=== PATIENT | male | born 1995 | race Caucasian/White ===

== ENCOUNTER 2017-07-07 06:41 | Emergency (ER) | payer SELFPAY ==
[2017-07-07 07:04] VITALS: TEMP 97.7
[2017-07-07] MEDS ORDERED: hydrOXYzine HCl 25 MG TAB PO ONE (07:14)
[2017-07-07] MEDS ORDERED: predniSONE 20 MG TAB PO ONE (07:14)
--- NOTE | 2017-07-07 07:17 | ED.PDOC ---
History of Present Illness - General Chief Complaint: Skin/Abrasion/Tear Stated Complaint: Rash Time Seen by Provider: 07/07/17 07:14 Source: patient Exam Limitations: no limitations - History of Present Illness Initial Comments: pt presents after 3 days of pruritic rash to wrists followed by some general periorbital swelling and runny nose. probable exposure to poison alejandra 3 days ago. has washed with soap. no sob or resp distress. Severity: moderate Improving Factors: nothing Associated Symptoms: denies symptoms Allergies/Adverse Reactions: Allergies Penicillins Allergy (Verified 07/07/17 07:05) Unknown Home Medications: Ambulatory Orders Hydroxyzine HCl 25 mg PO Q6H PRN #30 tab 07/07/17 predniSONE [Prednisone] 20 mg PO DAILY #5 tab 07/07/17 Review of Systems - Review of Systems Constitutional: States: no symptoms reported EENTM: States: see HPI Respiratory: States: no symptoms reported Cardiology: States: no symptoms reported Gastrointestinal/Abdominal: States: no symptoms reported Genitourinary: States: no symptoms reported Musculoskeletal: States: no symptoms reported Skin: States: see HPI Neurological: States: no symptoms reported Endocrine: States: no symptoms reported All other Systems: No Change from Baseline Past Medical History (General) - Patient Medical History Hx Seizures: No Hx Stroke: No Hx Dementia: No Hx Asthma: No Hx of COPD: No Hx Cardiac Disorders: No Hx Congestive Heart Failure: No Hx Pacemaker: No Hx Hypertension: No Hx Thyroid Disease: No Hx Diabetes: No Hx Gastroesophageal Reflux: No Hx Renal Disease: No Hx Cancer: No Hx of HIV: No Hx Hepatitis C: No Hx MRSA: No Surgical History: tonsillectomy - Vaccination History Hx Tetanus, Diphtheria Vaccination: Yes Hx Influenza Vaccination: No Hx Pneumococcal Vaccination: No - Social History Hx Tobacco Use: No Hx Chewing Tobacco Use: No Hx Alcohol Use: Yes Hx Substance Use: Yes Hx Substance Use Treatment: No Hx Depression: Yes Hx Physical Abuse: No Hx Emotional Abuse: No Hx Suspected Abuse: No Family Medical History - Family History Mother Family History: No Known Living Status: Still Living Physical Exam - Physical Exam General Appearance: Alert, Comfortable, No apparent distress Eye Exam: bilateral normal Ears, Nose, Throat: hearing grossly normal, normal ENT inspection, normal pharynx Neck: full range of motion, supple Respiratory: lungs clear, normal breath sounds, no respiratory distress, no accessory muscle use Cardiovascular/Chest: normal peripheral pulses, regular rate, rhythm, no edema Peripheral Pulses: radial,right: 2+, radial,left: 2+, dorsalis pedis,right: 2+, dorsalis pedis,left: 2+ Gastrointestinal/Abdominal: non tender, soft Rectal Exam: deferred Back Exam: normal inspection, no CVA tenderness, no vertebral tenderness Extremity: normal range of motion, non-tender, normal inspection, no pedal edema , normal capillary refill Neurologic: alert, normal mood/affect, oriented x 3 Skin Exam: normal color Comments: Vital Signs - 24 hr 07/07/17 07:01 Temperature 97.7 F Pulse Rate [ 68 Left Radial] Respiratory 20 Rate Blood Pressure 121/68 [Left Arm] O2 Sat by Pulse 98 Oximetry Progress - Progress Progress: 07/07/17 07:17 pt here with reaction likely from poison alejandra/oak. no anaphylaxis. given prednisone and hydroxyzine here and scripts written . er warnings for any worsening. no evidence of infection at this time. - Results/Orders Results/Orders: Vital Signs - 24 hr 07/07/17 07:01 Temperature 97.7 F Pulse Rate [ 68 Left Radial] Respiratory 20 Rate Blood Pressure 121/68 [Left Arm] O2 Sat by Pulse 98 Oximetry Departure - Departure Clinical Impression: Contact dermatitis due to poison rom Disposition: Discharge to Home or Self Care Condition: Fair Departure Forms: ED Discharge - Pt. Copy, ED Discharge - Work Release, Patient Portal Self Enrollment Instructions: DI for Contact Dermatitis Diet: regular diet Activity: increase activity as tolerated Prescriptions: Hydroxyzine HCl 25 mg PO Q6H PRN #30 tab PRN Reason: For Itching predniSONE [Prednisone] 20 mg PO DAILY #5 tab Home Medications: Ambulatory Orders Hydroxyzine HCl 25 mg PO Q6H PRN #30 tab 07/07/17 predniSONE [Prednisone] 20 mg PO DAILY #5 tab 07/07/17 Additional Instructions: pt here with reaction likely from poison alejandra/oak. no anaphylaxis. given prednisone and hydroxyzine here and scripts written . er warnings for any worsening. no evidence of infection at this time.
[2017-07-07 07:30] VITALS: BP 121/76; O2SAT 97
== END 2017-07-07 07:31 | disposition home or self-care (01) ==
LOC: ER 06:41
DX: L23.7 Allergic contact dermatitis due to plants, except food (principal); Z88.0 Allergy status to penicillin; Z79.899 Other long term (current) drug therapy

== ENCOUNTER 2017-07-14 17:32 | Emergency (ER) | payer SELFPAY ==
[2017-07-14 17:40] VITALS: BP 116/74; TEMP 98.8; O2SAT 98
[2017-07-14] MEDS ORDERED: DEXAMETHASONE INJ 10 MG/ML VIAL IM ONE (17:51)
--- NOTE | 2017-07-14 18:00 | ED.PDOC ---
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 ALSO HAS SIMILAR RASH HE WAS SEEN HERE ON 07 OF JULY RECEIVED TREATMENT WITH PREDNISONE 20 MG POQ DAY AND ATARAX HE CONTUNOUS TO ITCH AFTER COMPLETING THE COURSE OF PRESCRIBED STEROIDS TODAY HE HAS RIGHT PERIORBITAL SOFT TISSUE EDEMA AND PATCHY ERYTHEMATOUS RASH IN THE UPPER TRUNK SOME LENIER STREAKS OF REDNESS IN THE UPPER EXTREMITY HE HAS NO ORAL LESIONS NO RESPIRATORY SYMPTOMS Timing/Duration: week Location: torso, hands, extremities Improving Factors: nothing Worsening Factors: nothing Associated Symptoms: denies symptoms, itching, rash Allergies/Adverse Reactions: Allergies Penicillins Allergy (Verified 07/14/17 17:42) Unknown Home Medications: Ambulatory Orders Prednisone See Taper PO DAILY 5 Days #20 tab 07/14/17 Review of Systems - Review of Systems Constitutional: States: no symptoms reported EENTM: States: no symptoms reported Respiratory: States: no symptoms reported Cardiology: States: no symptoms reported Gastrointestinal/Abdominal: States: no symptoms reported Genitourinary: States: no symptoms reported Musculoskeletal: States: no symptoms reported Skin: States: no symptoms reported, see HPI Neurological: States: no symptoms reported Endocrine: States: no symptoms reported Hematologic/Lymphatic: States: no symptoms reported Past Medical History (General) - Patient Medical History Hx Seizures: No Hx Stroke: No Hx Dementia: No Hx Asthma: No Hx of COPD: No Hx Cardiac Disorders: No Hx Congestive Heart Failure: No Hx Pacemaker: No Hx Hypertension: No Hx Thyroid Disease: No Hx Diabetes: No Hx Gastroesophageal Reflux: No Hx Renal Disease: No Hx Cancer: No Hx of HIV: No Hx Hepatitis C: No Hx MRSA: No - Vaccination History Hx Tetanus, Diphtheria Vaccination: Yes Hx Influenza Vaccination: No Hx Pneumococcal Vaccination: No - Social History Hx Tobacco Use: No Hx Chewing Tobacco Use: No Hx Alcohol Use: Yes Hx Substance Use: Yes Hx Substance Use Treatment: No Hx Depression: Yes Hx Physical Abuse: No Hx Emotional Abuse: No Hx Suspected Abuse: No Family Medical History - Family History Mother Family History: No Known Living Status: Still Living Physical Exam - Physical Exam General Appearance: Anxious, No apparent distress, Obese, Well Developed, Well Groomed, Well Hydrated, Well Nourished Eyes, Ears, Nose, Throat Exam: PERRL/EOMI, normal ENT inspection, TMs normal, pharynx normal Neck: non-tender, full range of motion, supple Cardiovascular/Chest: normal peripheral pulses, regular rate, rhythm, no edema, no gallop, no JVD Respiratory: lungs clear, normal breath sounds, no respiratory distress Gastrointestinal/Abdominal: normal bowel sounds, non tender, soft, no organomegaly, no pulsatile mass Extremity: normal range of motion 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 Copy, Patient Portal Self Enrollment Prescriptions: Prednisone See Taper PO DAILY 5 Days #20 tab Home Medications: Ambulatory Orders Prednisone See Taper PO DAILY 5 Days #20 tab 07/14/17
== END 2017-07-14 18:13 | disposition home or self-care (01) ==
LOC: ER 17:32
DX: L25.9 Unspecified contact dermatitis, unspecified cause (principal); Z88.0 Allergy status to penicillin

== ENCOUNTER 2017-08-28 06:27 | Emergency (ER) | payer SELFPAY ==
[2017-08-28] MEDS ORDERED: DEXAMETHASONE INJ 10 MG/ML VIAL IM ONE (06:47)
[2017-08-28 06:50] VITALS: O2SAT 96
--- NOTE | 2017-08-28 06:51 | ED.PDOC ---
History of Present Illness - General Chief Complaint: General Stated Complaint: rash all over x 1 week Time Seen by Provider: 08/28/17 06:47 Source: patient Exam Limitations: no limitations Additional Information: RASH, ONSET ONE WEEK AGO. HAS BEEN TREATING IT WITH OVER THE COUNTER MEDS BUT SEEMS THAT IT IS GETTING WORSE. HE WORKS IN THE [employer] AND HE HAS HAD RHUSS DERMATITIS BEFORE. - History of Present Illness Timing/Duration: 1 week Severity: mild Improving Factors: nothing Worsening Factors: nothing Associated Symptoms: other - ITCHING Allergies/Adverse Reactions: Allergies Penicillins Allergy (Verified 07/14/17 17:42) Unknown Home Medications: Ambulatory Orders Prednisone See Taper PO DAILY 5 Days #20 tab 07/14/17 Prednisone 10 mg PO DAILY #25 lizbeth 08/28/17 Triamcinolone 0.1% Oint [Kenalog 0.1% Ointment] 30 gm TOP BID 5 Days tube 08/28 hydrOXYzine HCl [Atarax] 25 mg PO Q8HRS #15 tab 08/28/17 Review of Systems - Review of Systems Constitutional: States: other - RASH AND ITCHING EENTM: States: no symptoms reported Respiratory: States: no symptoms reported Cardiology: States: no symptoms reported Gastrointestinal/Abdominal: States: no symptoms reported Genitourinary: States: no symptoms reported Musculoskeletal: States: no symptoms reported Skin: States: rash Neurological: States: no symptoms reported Endocrine: States: no symptoms reported Hematologic/Lymphatic: States: no symptoms reported All other Systems: Reviewed and Negative Past Medical History (General) - Patient Medical History Hx Seizures: No Hx Stroke: No Hx Dementia: No Hx Asthma: No Hx of COPD: No Hx Cardiac Disorders: No Hx Congestive Heart Failure: No Hx Pacemaker: No Hx Hypertension: No Hx Thyroid Disease: No Hx Diabetes: No Hx Gastroesophageal Reflux: No Hx Renal Disease: No Hx Cancer: No Hx of HIV: No Hx Hepatitis C: No Hx MRSA: No - Vaccination History Hx Tetanus, Diphtheria Vaccination: Yes Hx Influenza Vaccination: No Hx Pneumococcal Vaccination: No - Social History Hx Tobacco Use: No Hx Chewing Tobacco Use: No Hx Alcohol Use: Yes Hx Substance Use: Yes Hx Substance Use Treatment: No Hx Depression: Yes Hx Physical Abuse: No Hx Emotional Abuse: No Hx Suspected Abuse: No Family Medical History - Family History Mother Family History: No Known Living Status: Still Living Physical Exam - Physical Exam General Appearance: Alert, No apparent distress, Well Developed, Well Groomed, Well Nourished Eye Exam: bilateral normal Ears, Nose, Throat: hearing grossly normal, normal ENT inspection, normal pharynx Neck: non-tender, full range of motion, supple, normal inspection Respiratory: chest non-tender, lungs clear, normal breath sounds, no respiratory distress, no accessory muscle use Cardiovascular/Chest: normal peripheral pulses, regular rate, rhythm, no edema, no gallop, no JVD, no murmur Peripheral Pulses: radial,right: 2+, radial,left: 2+ Gastrointestinal/Abdominal: normal bowel sounds, non tender, soft Rectal Exam: deferred Back Exam: normal inspection Extremity: normal range of motion, non-tender, normal inspection Neurologic: no motor/sensory deficits, alert Skin Exam: rash - ON THE RIGHT ARM THERE IS A PAPULAR RASH ON THE ANTERIOR SURFACE AND ELBOW AREA, LINEAR DISTRIBUTION SUGGESTIVE OF RHUSS DERMATITIS. ON THE LEFT WRIST ANTERIORLY THERE IS ANOTHER RASH WITH SCRATH JOSÉ. Departure - Departure Clinical Impression: Rhus dermatitis Time of Disposition: 06:54 Disposition: Discharge to Home or Self Care Condition: Good Departure Forms: ED Discharge - Pt. Copy, Patient Portal Self Enrollment Diet: resume usual diet Activity: increase activity as tolerated Prescriptions: hydrOXYzine HCl [Atarax] 25 mg PO Q8HRS #15 tab Prednisone 10 mg PO DAILY #25 lizbeth Triamcinolone 0.1% Oint [Kenalog 0.1% Ointment] 30 gm TOP BID 5 Days tube Home Medications: Ambulatory Orders Prednisone See Taper PO DAILY 5 Days #20 tab 07/14/17 Prednisone 10 mg PO DAILY #25 lizbeth 08/28/17 Triamcinolone 0.1% Oint [Kenalog 0.1% Ointment] 30 gm TOP BID 5 Days tube 08/28 hydrOXYzine HCl [Atarax] 25 mg PO Q8HRS #15 tab 08/28/17
[2017-08-28 07:09] VITALS: BP 105/67; TEMP 97.6
== END 2017-08-28 07:09 | disposition home or self-care (01) ==
LOC: ER 06:27
DX: L23.7 Allergic contact dermatitis due to plants, except food (principal); Z88.0 Allergy status to penicillin

== ENCOUNTER 2017-09-19 19:17 | Emergency (ER) | payer SELFPAY | END 2017-09-19 22:07 | disposition home or self-care (01) | LOC: ER 19:17 | DX: Z53.21 Procedure and treatment not carried out due to patient leaving prior to being seen by health care provider (principal) ==

== ENCOUNTER 2017-09-20 07:10 | Emergency (ER) | payer SELFPAY ==
--- NOTE | 2017-09-20 07:47 | ED.PDOC ---
History of Present Illness - General Chief Complaint: Headache Stated Complaint: headache Time Seen by Provider: 09/20/17 07:32 Source: patient Exam Limitations: no limitations - History of Present Illness Initial Comments: magnolia Marcum 21 y/o male stated that he had on and off throbbing headache for the last one week along left periorbital area and cheeks with light headedness getting up from bed.Has also mild photophobia no blurry vision,no fever,no nausea or vomiting or abdominal pain.Denies head trauma.No history of migraine headache.Took over the counter medication ibuprofen /tylenol did not help Timing/Duration: 1 week Quality: moderate, throbbing, other - intermittent Recent Head Trauma: no recent headache/trauma Improving Factors: nothing Worsening Factors: nothing Associated Symptoms: denies symptoms Allergies/Adverse Reactions: Allergies Penicillins Allergy (Verified 09/20/17 07:28) Unknown Home Medications: Ambulatory Orders Sumatriptan Succinate [Imitrex] 25 mg PO PRN PRN #10 tab 09/20/17 Review of Systems - Review of Systems Constitutional: States: no symptoms reported EENTM: States: no symptoms reported Respiratory: States: no symptoms reported Cardiology: States: no symptoms reported Gastrointestinal/Abdominal: States: no symptoms reported Neurological: States: see HPI, headache All other Systems: Reviewed and Negative, No Change from Baseline Past Medical History (General) - Patient Medical History Hx Seizures: No Hx Stroke: No Hx Dementia: No Hx Asthma: No Hx of COPD: No Hx Cardiac Disorders: No Hx Congestive Heart Failure: No Hx Pacemaker: No Hx Hypertension: No Hx Thyroid Disease: No Hx Diabetes: No Hx Gastroesophageal Reflux: No Hx Renal Disease: No Hx Cancer: No Hx of HIV: No Hx Hepatitis C: No Hx MRSA: No Surgical History: tonsillectomy - Vaccination History Hx Tetanus, Diphtheria Vaccination: Yes Hx Influenza Vaccination: No Hx Pneumococcal Vaccination: No - Social History Hx Tobacco Use: Yes Hx Chewing Tobacco Use: No Hx Alcohol Use: Yes Hx Substance Use: Yes Hx Substance Use Treatment: No Hx Depression: Yes Hx Physical Abuse: No Hx Emotional Abuse: No Hx Suspected Abuse: No Family Medical History - Family History Mother Family History: No Known Living Status: Still Living Physical Exam - Physical Exam General Appearance: Alert, Comfortable, No apparent distress, Well Developed, Well Groomed, Well Hydrated, Well Nourished Eyes, Ears, Nose, Throat Exam: PERRL/EOMI, normal ENT inspection Neck: non-tender, full range of motion, supple Cardiovascular/Chest: normal peripheral pulses, regular rate, rhythm, no murmur Respiratory: chest non-tender, lungs clear, normal breath sounds Gastrointestinal/Abdominal: normal bowel sounds, non tender, soft, no organomegaly Back Exam: normal inspection, no CVA tenderness, no vertebral tenderness Extremity: normal range of motion, non-tender, no pedal edema, no calf tenderness Mental Status: alert, oriented x 3 employment recruiter Exam: normal hearing, normal speech, PERRL Coordination/Gait: normal gait, negative Romberg's sign Motor/Sensory: no motor deficit, no sensory deficit, no pronator drift Skin Exam: warm/dry, normal color Lymphatic: no adenopathy Progress - Progress Progress: 09/20/17 07:50 Last Vital Signs Temp 98.3 F 09/20/17 07:22 Pulse 65 09/20/17 07:22 Resp 20 09/20/17 07:22 BP 125/79 09/20/17 07:22 Pulse Ox 94 L 09/20/17 07:22 Departure - Departure Clinical Impression: Headache Qualifiers: Headache type: unspecified Headache chronicity pattern: unspecified pattern Intractability: not intractable Qualified Code(s): R51 - Headache Time of Disposition: 07:54 Disposition: Discharge to Home or Self Care Condition: Good Departure Forms: ED Discharge - Pt. Copy, Patient Portal Self Enrollment Prescriptions: Sumatriptan Succinate [Imitrex] 25 mg PO PRN PRN #10 tab PRN Reason: Headache/Migraine Pain Home Medications: Ambulatory Orders Sumatriptan Succinate [Imitrex] 25 mg PO PRN PRN #10 tab 09/20/17 Additional Instructions: NEED TO SIGN UP WITH PRIMARY Md call for your appointment
[2017-09-20] MEDS ORDERED: predniSONE 20 MG TAB PO ONE (07:51)
[2017-09-20] MEDS ORDERED: PROMETHAZINE HCL INJ 25 MG/ML VIAL IM ONE (07:52)
[2017-09-20] MEDS ORDERED: HYDROcodone 7.5MG/APAP 325MG 1 EA TAB PO ONE (07:52)
[2017-09-20] MEDS ORDERED: KETOROLAC TROMETHAMINE INJ 30 MG/ML VIAL IM ONE (07:52)
[2017-09-20 08:00] VITALS: BP 125/79; TEMP 98.3; O2SAT 94
== END 2017-09-20 08:30 | disposition home or self-care (01) ==
LOC: ER 07:10
DX: R51 Headache (principal); Z87.891 Personal history of nicotine dependence
CPT/HCPCS: J1885; J2550; J7512

== ENCOUNTER 2018-07-25 07:23 | Emergency (ER) | payer SELFPAY ==
[2018-07-25 07:45] VITALS: TEMP 99.1
--- NOTE | 2018-07-25 07:51 | ED.PDOC ---
History of Present Illness - General Chief Complaint: General Stated Complaint: dizziness, vomiting Time Seen by Provider: 07/25/18 07:45 Source: patient Exam Limitations: no limitations - History of Present Illness Initial Comments: PT PRESENTS TO THE ED WITH COMPLAINT OF VERTIGO, NAUSEA, AND VOMITING THAT BEGAN YESTERDAY WHILE AT WORK. PT REPORTS THAT HE WAS UNLOADING PIPES COVERED IN OIL AND FEELS THOUGH THE FUMES TRIGGERED THE EVENT. PT DENIES, FEVER, CHILLS, ABDOMINAL PAIN, OR DIARRHEA. Timing/Duration: 24 hours Severity: moderate Improving Factors: immobilization Worsening Factors: movement Associated Symptoms: nausea/vomiting Allergies/Adverse Reactions: Allergies Penicillins Allergy (Verified 09/20/17 07:28) Unknown Home Medications: Ambulatory Orders Sumatriptan Succinate [Imitrex] 25 mg PO PRN PRN #10 tab 09/20/17 Meclizine HCl [Meclizine 25] 50 mg PO Q6HR PRN #24 tab 07/25/18 Promethazine Tab [Phenergan Tablet] 25 mg PO Q6H PRN #15 tab 07/25/18 Review of Systems - Review of Systems Constitutional: Denies: chills, fever EENTM: Denies: nose congestion, throat pain Respiratory: Denies: cough, short of breath Cardiology: Denies: chest pain, palpitations Gastrointestinal/Abdominal: States: see HPI, nausea, vomiting. Denies: abdominal pain, diarrhea Genitourinary: Denies: dysuria, frequency Musculoskeletal: Denies: joint pain, joint swelling Skin: Denies: dryness, lesions Neurological: Denies: headache, paresthesia Endocrine: States: no symptoms reported Hematologic/Lymphatic: States: no symptoms reported Past Medical History (General) - Patient Medical History Hx Seizures: No Hx Stroke: No Hx Dementia: No Hx Asthma: No Hx of COPD: No Hx Cardiac Disorders: No Hx Congestive Heart Failure: No Hx Pacemaker: No Hx Hypertension: No Hx Thyroid Disease: No Hx Diabetes: No Hx Gastroesophageal Reflux: No Hx Renal Disease: No Hx Cancer: No Hx of HIV: No Hx Hepatitis C: No Hx MRSA: No - Vaccination History Hx Tetanus, Diphtheria Vaccination: Yes Hx Influenza Vaccination: No Hx Pneumococcal Vaccination: No - Social History Hx Tobacco Use: Yes Hx Chewing Tobacco Use: Yes Hx Alcohol Use: Yes Hx Substance Use: Yes Hx Substance Use Treatment: No Hx Depression: Yes Hx Physical Abuse: No Hx Emotional Abuse: No Hx Suspected Abuse: No Family Medical History - Family History Mother Family History: No Known Living Status: Still Living Physical Exam - Physical Exam General Appearance: Alert, Comfortable, No apparent distress, Well Developed, Well Groomed, Well Hydrated Eye Exam: bilateral normal Ears, Nose, Throat: hearing grossly normal Neck: non-tender, full range of motion Respiratory: lungs clear, normal breath sounds, no respiratory distress Cardiovascular/Chest: regular rate, rhythm, no murmur Gastrointestinal/Abdominal: non tender, soft Extremity: normal range of motion Neurologic: alert, normal mood/affect, oriented x 3 Skin Exam: normal color, warm/dry Progress - Progress Progress: 07/25/18 08:59 PT REPORTS SIGNIFICANT IMPROVEMENT IN NAUSEA AND VERTIGO AFTER IV PHENERGAN AND PO MECLIZINE. LABS DISCUSSED. PT TOLERATED ORAL FLUIDS. - Results/Orders Results/Orders: Laboratory Tests 07/25/18 07/25/18 07:50 07:50 WBC 5.5 RBC 4.78 Hgb 14.7 Hct 43.6 MCV 91.1 MCH 30.7 MCHC 33.7 RDW 12.7 Plt Count 219 MPV 9.0 Absolute Neuts (auto) 3.40 Absolute Lymphs (auto) 1.50 Absolute Monos (auto) 0.50 Absolute Eos (auto) 0.10 Absolute Basos (auto) 0.00 Neutrophils % 62.5 Lymphocytes % 26.4 Monocytes % 9.0 Eosinophils % 1.5 Basophils % 0.6 Sodium 139 Potassium 3.9 Chloride 103 Carbon Dioxide 29 Anion Gap 10.9 L BUN 16 Creatinine 0.89 BUN/Creatinine Ratio 18.0 Random Glucose 107 H Serum Osmolality 279.2 Calcium 9.2 Total Bilirubin 0.6 Direct Bilirubin < 0.1 Indirect Bilirubin 0.5 AST 21 ALT 28 Alkaline Phosphatase 58 Serum Total Protein 7.6 Albumin 4.4 Departure - Departure Clinical Impression: Benign positional vertigo, Nausea & vomiting Time of Disposition: 09:00 Disposition: Discharge to Home or Self Care Condition: Good Departure Forms: ED Discharge - Pt. Copy, Patient Portal Self Enrollment Instructions: Vertigo (a Type of Dizziness) (DC), Nausea and Vomiting, Adult ( DC) Referrals: [facility] [Provider Group] - 1-5 Days Prescriptions: Meclizine HCl [Meclizine 25] 50 mg PO Q6HR PRN #24 tab PRN Reason: Dizziness Promethazine Tab [Phenergan Tablet] 25 mg PO Q6H PRN #15 tab PRN Reason: Nausea/Vomiting Home Medications: Ambulatory Orders Sumatriptan Succinate [Imitrex] 25 mg PO PRN PRN #10 tab 09/20/17 Meclizine HCl [Meclizine 25] 50 mg PO Q6HR PRN #24 tab 07/25/18 Promethazine Tab [Phenergan Tablet] 25 mg PO Q6H PRN #15 tab 07/25/18
[2018-07-25] MEDS ORDERED: PROMETHAZINE HCL INJ 25 MG/ML VIAL ONE (07:59)
[2018-07-25] MEDS ORDERED: SODIUM CHLORIDE 0.9% 50ML 50 ML ONE (08:01)
[2018-07-25] MEDS: SODIUM CHLORIDE 0.9% 1000ML 1,000 ML IVS ONE (08:10)
[2018-07-25] MEDS: SODIUM CHLORIDE 0.9% (FLUSH) 10 ML SYG IV PRN (08:11)
[2018-07-25] MEDS: MECLIZINE HCL 12.5 MG TAB PO ONE (08:13)
[2018-07-25] MEDS: PROMETHAZINE HCL INJ 25 MG in SODIUM CHLORIDE 0.9% 50ML 50 ML IVPB ONE (08:19)
[2018-07-25 08:41] VITALS: BP 111/72; O2SAT 98
== END 2018-07-25 09:22 | disposition home or self-care (01) ==
LOC: ER 07:23
DX: H81.10 Benign paroxysmal vertigo, unspecified ear (principal); F32.9 Major depressive disorder, single episode, unspecified; F17.210 Nicotine dependence, cigarettes, uncomplicated; Z79.899 Other long term (current) drug therapy; Z88.0 Allergy status to penicillin
CPT/HCPCS: 36415; 80048; 80076; 85025; A4216; J2550; J7030

== ENCOUNTER 2018-09-27 06:12 | Emergency (ER) | payer SELFPAY ==
[2018-09-27] MEDS ORDERED: ONDANSETRON ODT 8 MG TAB SL ONE (06:36)
--- NOTE | 2018-09-27 06:53 | ED.PDOC ---
History of Present Illness - General Source: patient Exam Limitations: no limitations - History of Present Illness Initial Comments: The patient presents to the emergency room after an hour of nausea and vomiting. He was feeling fine before that. No fevers. He did have a runny nose. No blood in the vomitus. No diarrhea. No abdominal pain. Flu is rampant in the community. Timing/Duration: 1-3 hours Severity: mild Improving Factors: nothing Worsening Factors: nothing Associated Symptoms: malaise, nausea/vomiting <Skip Figueroa - Last Filed: 09/27/18 06:51> <Garret Bernard - Last Filed: 09/27/18 09:24> - General Chief Complaint: GI Problem Stated Complaint: vomiting Time Seen by Provider: 09/27/18 06:36 - History of Present Illness Allergies/Adverse Reactions: Allergies Penicillins Allergy (Verified 09/20/17 07:28) Unknown Home Medications: Ambulatory Orders Meclizine HCl [Meclizine 25] 50 mg PO Q6HR PRN #24 tab 07/25/18 Promethazine Tab [Phenergan Tablet] 25 mg PO Q6H PRN #15 tab 07/25/18 Ondansetron [Zofran Odt] 4 mg PO Q8HRS PRN #10 tab 09/27/18 Review of Systems - Review of Systems Constitutional: States: no symptoms reported EENTM: States: no symptoms reported Respiratory: States: no symptoms reported Cardiology: States: no symptoms reported Gastrointestinal/Abdominal: States: see HPI Genitourinary: States: no symptoms reported Musculoskeletal: States: no symptoms reported Skin: States: no symptoms reported Neurological: States: no symptoms reported Endocrine: States: no symptoms reported All other Systems: No Change from Baseline <Skip Figueroa - Last Filed: 09/27/18 06:51> Past Medical History (General) - Patient Medical History Hx Seizures: No Hx Stroke: No Hx Dementia: No Hx Asthma: No Hx of COPD: No Hx Cardiac Disorders: No Hx Congestive Heart Failure: No Hx Pacemaker: No Hx Hypertension: No Hx Thyroid Disease: No Hx Diabetes: No Hx Gastroesophageal Reflux: No Hx Renal Disease: No Hx Cancer: No Hx of HIV: No Hx Hepatitis C: No Hx MRSA: No - Vaccination History Hx Tetanus, Diphtheria Vaccination: Yes Hx Influenza Vaccination: No Hx Pneumococcal Vaccination: No - Social History Hx Tobacco Use: Yes Hx Chewing Tobacco Use: Yes Hx Alcohol Use: Yes Hx Substance Use: Yes Hx Substance Use Treatment: No Hx Depression: Yes Hx Physical Abuse: No Hx Emotional Abuse: No Hx Suspected Abuse: No <Skip Figueroa - Last Filed: 09/27/18 06:51> Family Medical History - Family History Mother Family History: No Known Living Status: Still Living <Trish Figueroaying Rios - Last Filed: 09/27/18 06:51> Physical Exam - Physical Exam General Appearance: Alert, Comfortable, No apparent distress Eye Exam: bilateral normal Ears, Nose, Throat: hearing grossly normal, normal ENT inspection, normal pharynx Neck: full range of motion, supple Respiratory: lungs clear, normal breath sounds, no respiratory distress, no accessory muscle use Cardiovascular/Chest: normal peripheral pulses, regular rate, rhythm, no edema Peripheral Pulses: radial,right: 2+, radial,left: 2+ Gastrointestinal/Abdominal: non tender, soft Rectal Exam: deferred Back Exam: normal inspection, no CVA tenderness Extremity: normal range of motion, non-tender, normal inspection, no pedal edema, normal capillary refill 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 He has received a dose of Zofran ODT. He is being tested for the flu. care is being assumed by the oncoming ER doctor. <Skip Figueroa - Last Filed: 09/27/18 06:51> - Results/Orders Results/Orders: 09/27/18 07:30 CARDIAC PANEL,ER Stat HEPATIC FUNCTION PANEL Stat LIPASE Stat 09/27/18 07:31 IV Care:Saline Lock per Protoc QSHIFT 09/27/18 08:12 URINALYSIS Stat Laboratory Results - last 24 hr 09/27/18 07:30 WBC 5.9 RBC 4.82 Hgb 15.0 Hct 44.1 MCV 91.4 MCH 31.1 H MCHC 34.0 RDW 13.0 Plt Count 226 MPV 9.2 Absolute Neuts (auto) 3.80 Absolute Lymphs (auto) 1.40 Absolute Monos (auto) 0.50 Absolute Eos (auto) 0.10 Absolute Basos (auto) 0.10 Neutrophils % 65.1 Lymphocytes % 24.2 Monocytes % 8.3 Eosinophils % 1.5 Basophils % 0.9 PT 10.2 INR 1.02 PTT (SP) 25.5 Sodium 137 Potassium 4.2 Chloride 102 Carbon Dioxide 28 Anion Gap 11.2 L BUN 16 Creatinine 1.05 BUN/Creatinine Ratio 15.2 Random Glucose 129 H Serum Osmolality 276.7 Calcium 9.1 Magnesium 2.1 Total Bilirubin 0.4 Direct Bilirubin < 0.1 Indirect Bilirubin 0.3 AST 22 ALT 28 Alkaline Phosphatase 60 Creatine Kinase 278 H* Serum Total Protein 7.6 Albumin 4.5 Lipase 25 <Garret Bernard - Last Filed: 09/27/18 09:24> Departure <Skip Figueroa L - Last Filed: 09/27/18 06:51> - Departure Time of Disposition: 09:20 Diet: bland diet, other - Avoid greasy/spicy foods until better <Garret Bernard - Last Filed: 09/27/18 09:24> - Departure Clinical Impression: Gastroenteritis Vomiting Qualifiers: Vomiting type: unspecified Vomiting Intractability: non-intractable Nausea presence: unspecified Qualified Code(s): R11.10 - Vomiting, unspecified Disposition: Discharge to Home or Self Care Condition: Good Departure Forms: ED Discharge - Pt. Copy, ED Discharge - Work Release, Patient Portal Self Enrollment Instructions: Viral Gastroenteritis, Adult (DC), Viral Gastroenteritis, [place] Diet Prescriptions: Ondansetron [Zofran Odt] 4 mg PO Q8HRS PRN #10 tab PRN Reason: Nausea/Vomiting Home Medications: Ambulatory Orders Meclizine HCl [Meclizine 25] 50 mg PO Q6HR PRN #24 tab 07/25/18 Promethazine Tab [Phenergan Tablet] 25 mg PO Q6H PRN #15 tab 07/25/18 Ondansetron [Zofran Odt] 4 mg PO Q8HRS PRN #10 tab 09/27/18 Additional Instructions: Return to ER as needed;Off work today 27 Sep 2018 ;May return to regular work
[2018-09-27 07:21] VITALS: BP 128/63; TEMP 98.7; O2SAT 99
[2018-09-27] MEDS ORDERED: SODIUM CHLORIDE 0.9% 1000ML 1,000 ML IVS ONE (07:31)
--- NOTE | 2018-09-27 08:12 | RAD ---
1 radiographic chest 3 Radiographs of the Abdomen. Indication: N/.V Comparison: None. Impression: Heart size normal. Lungs clear. No free air. Mild constipation without findings of obstruction. No abnormal calcifications. No acute osseous abnormality. Electronically signed by: Emerson Patel MD 09/27/2018 8:10 AM MENTAL HEALTH TECHNICIAN
--- NOTE | 2018-09-27 08:12 | RAD ---
1 radiographic chest 3 Radiographs of the Abdomen. Indication: N/.V Comparison: None. Impression: Heart size normal. Lungs clear. No free air. Mild constipation without findings of obstruction. No abnormal calcifications. No acute osseous abnormality. Electronically signed by: Emerson Patel MD 09/27/2018 8:10 AM RIPENING ROOM ATTENDANT
== END 2018-09-27 09:55 | disposition home or self-care (01) ==
LOC: ER 06:12
DX: K52.9 Noninfective gastroenteritis and colitis, unspecified (principal); F32.9 Major depressive disorder, single episode, unspecified; Z87.891 Personal history of nicotine dependence; Z88.0 Allergy status to penicillin
CPT/HCPCS: 71045; 74019; 80048; 80076; 81001; 82550; 82553; 83690; 84484; 85025; 85610; 85730; 87502; J7030

== ENCOUNTER 2019-02-10 05:49 | Emergency (ER) | payer SELFPAY ==
[2019-02-10] MEDS ORDERED: ONDANSETRON INJ 4 MG/2 ML VIAL IV ONE (06:22)
--- NOTE | 2019-02-10 06:37 | ED.PDOC ---
History of Present Illness - General Source: patient Exam Limitations: no limitations - History of Present Illness Initial Comments: Patient presents with loose stools for two days. They are non-bloody and sometimes greenish-yellow. They are sometimes dark but not black. One hour [employer], the patient started vomiting. The bowel movements and the vomiting have been associated with a diffuse, cramping, abdominal pain that is more concentrated in the LUQ. The pain does not improve after a BM or vomiting. The vomitus is non-bilious with occasional streaks of blood. No coffee ground emesis. [place] but has no similarly sick contacts. No other complaints. Timing/Duration: other - 2 days Severity: moderate Improving Factors: nothing Worsening Factors: nothing Associated Symptoms: other - as in HPI <Chace Choi - Last Filed: 02/10/19 06:33> <Skip Figueroa - Last Filed: 02/10/19 08:04> - General Stated Complaint: nausea, vomiting, diarrhea Time Seen by Provider: 02/10/19 05:52 - History of Present Illness Allergies/Adverse Reactions: Allergies Penicillins Allergy (Verified 09/20/17 07:28) Unknown Home Medications: Ambulatory Orders Famotidine [Pepcid Tab] 20 mg PO BID #30 tab 02/10/19 Ondansetron [Ondansetron Odt] 4 mg PO Q8HR PRN #5 tab 02/10/19 Review of Systems - Review of Systems Constitutional: States: no symptoms reported EENTM: States: no symptoms reported Respiratory: States: no symptoms reported Cardiology: States: no symptoms reported Gastrointestinal/Abdominal: States: see HPI Genitourinary: States: no symptoms reported Musculoskeletal: States: no symptoms reported Skin: States: no symptoms reported Neurological: States: no symptoms reported Endocrine: States: no symptoms reported Hematologic/Lymphatic: States: no symptoms reported <Chace Choi - Last Filed: 02/10/19 06:33> Past Medical History (General) - Patient Medical History Hx Seizures: No Hx Stroke: No Hx Dementia: No Hx Asthma: No Hx of COPD: No Hx Cardiac Disorders: No Hx Congestive Heart Failure: No Hx Pacemaker: No Hx Hypertension: No Hx Thyroid Disease: No Hx Diabetes: No Hx Gastroesophageal Reflux: No Hx Renal Disease: No Hx Cancer: No Hx of HIV: No Hx Hepatitis C: No Hx MRSA: No Surgical History: tonsillectomy - Vaccination History Hx Tetanus, Diphtheria Vaccination: Yes Hx Influenza Vaccination: No Hx Pneumococcal Vaccination: No Immunizations Up to Date: No - Social History Hx Tobacco Use: Yes Hx Chewing Tobacco Use: Yes Hx Alcohol Use: Yes Hx Substance Use: Yes Hx Substance Use Treatment: No Hx Depression: Yes Hx Physical Abuse: No Hx Emotional Abuse: No Hx Suspected Abuse: No - Triage Comment ED Triage Comment: Woke up with upset stomach, voited and developed headache. States did call in to work so needs a Dr's excuse also. <Chace Choi - Last Filed: 02/10/19 06:33> Family Medical History - Family History Mother Family History: No Known Living Status: Still Living <Chace Choi - Last Filed: 02/10/19 06:33> Physical Exam - Physical Exam General Appearance: Alert Eye Exam: bilateral normal Ears, Nose, Throat: normal ENT inspection Neck: non-tender, full range of motion, supple Respiratory: lungs clear, normal breath sounds Cardiovascular/Chest: normal peripheral pulses, regular rate, rhythm Gastrointestinal/Abdominal: non tender, soft, abnormal bowel sounds - decreased bowel sounds Back Exam: no CVA tenderness Extremity: normal range of motion, non-tender, normal inspection Neurologic: no motor/sensory deficits, alert, normal mood/affect, oriented x 3 Skin Exam: normal color Lymphatic: no adenopathy <Chace Choi - Last Filed: 02/10/19 06:33> Progress - Progress Progress: 02/10/19 08:01 the patient appears to be feeling significantly better after the nausea medications and IV fluids. He will be written for Zofran for as needed use to control the nausea and vomiting and Pepcid for twice daily use for the next couple of weeks for the gastritis component. He can use a small amount of Imodium as he needs to to control the diarrhea. Eat a bland diet. Keep well hydrated. ER warnings were given. <Skip Figueroa - Last Filed: 02/10/19 08:04> Departure <Chace Choi - Last Filed: 02/10/19 06:33> - Departure Diet: bland diet Activity: increase activity as tolerated <Skip Figueroa - Last Filed: 02/10/19 08:04> - Departure Clinical Impression: Acute gastroenteritis Disposition: Discharge to Home or Self Care Condition: Fair Instructions: DI for Gastritis, DI for Diarrhea and Traveler's Diarrhea -- Adult Prescriptions: Ondansetron [Ondansetron Odt] 4 mg PO Q8HR PRN #5 tab PRN Reason: Nausea/Vomiting Famotidine [Pepcid Tab] 20 mg PO BID #30 tab Home Medications: Ambulatory Orders Famotidine [Pepcid Tab] 20 mg PO BID #30 tab 02/10/19 Ondansetron [Ondansetron Odt] 4 mg PO Q8HR PRN #5 tab 02/10/19 Additional Instructions: the patient appears to have a mild acute gastroenteritis. the patient appears to be feeling significantly better after the nausea medications and IV fluids. He will be written for Zofran for as needed use to control the nausea and vomiting and Pepcid for twice daily use for the next couple of weeks for the gastritis component. He can use a small amount of Imodium as he needs to to control the diarrhea. Eat a bland diet. Keep well hydrated. ER warnings were given.
[2019-02-10] MEDS ORDERED: SODIUM CHLORIDE 0.9% 1000ML 1,000 ML IVS ONE (06:39)
[2019-02-10 07:32] VITALS: O2SAT 98
[2019-02-10 08:18] VITALS: BP 128/77; TEMP 97.6
== END 2019-02-10 08:17 | disposition home or self-care (01) ==
LOC: ER 05:49
DX: K52.9 Noninfective gastroenteritis and colitis, unspecified (principal); F32.9 Major depressive disorder, single episode, unspecified; Z87.891 Personal history of nicotine dependence; Z88.0 Allergy status to penicillin
CPT/HCPCS: 36415; 80053; 81001; 83690; 85025; J2405; J7030

== ENCOUNTER 2019-02-23 08:52 | Emergency (ER) | payer SELFPAY ==
--- NOTE | 2019-02-23 09:09 | ED.PDOC ---
History of Present Illness - General Chief Complaint: General Stated Complaint: Pt has [place] PAZ, nausea, sore throat, abd pain Time Seen by Provider: 02/23/19 09:08 Source: patient Exam Limitations: no limitations - History of Present Illness Initial Comments: Loco Marcum 23 y/o male stated that for the last 1 1/2 days had achy throat,felt nauseated and had dull non radiating generalized headache.Tried to eat yesterday but stated throat feels raw so did not eat since yesterday.No diarrhea but with occasional cough and slight nasal congestion.No ill contact;no foreign travel,no outdoor camping. Timing/Duration: constant, other - see hpi Improving Factors: nothing Worsening Factors: nothing Associated Symptoms: other - see hpi Allergies/Adverse Reactions: Allergies Amoxicillin Allergy (Verified 02/23/19 09:12) Penicillins Allergy (Verified 09/20/17 07:28) Unknown Home Medications: Ambulatory Orders Azithromycin [Zithromax Z-Сергей] 250 mg PO DAILY 6 Days #6 tab 02/23/19 Review of Systems - Review of Systems Constitutional: States: no symptoms reported EENTM: States: see HPI, throat pain Respiratory: States: see HPI, cough - dry Cardiology: States: no symptoms reported Gastrointestinal/Abdominal: States: see HPI, nausea Musculoskeletal: States: no symptoms reported All other Systems: Reviewed and Negative, No Change from Baseline Past Medical History (General) - Patient Medical History Hx Seizures: No Hx Stroke: No Hx Dementia: No Hx Asthma: No Hx of COPD: No Hx Cardiac Disorders: No Hx Congestive Heart Failure: No Hx Pacemaker: No Hx Hypertension: No Hx Thyroid Disease: No Hx Diabetes: No Hx Gastroesophageal Reflux: No Hx Renal Disease: No Hx Cancer: No Hx of HIV: No Hx Hepatitis C: No Hx MRSA: No Surgical History: tonsillectomy - Vaccination History Hx Tetanus, Diphtheria Vaccination: Yes Hx Influenza Vaccination: No Hx Pneumococcal Vaccination: No - Social History Hx Tobacco Use: Yes Hx Chewing Tobacco Use: Yes Hx Alcohol Use: Yes Hx Substance Use: Yes Hx Substance Use Treatment: No Hx Depression: Yes Hx Physical Abuse: No Hx Emotional Abuse: No Hx Suspected Abuse: No Family Medical History - Family History Mother Family History: No Known Living Status: Still Living Physical Exam - Physical Exam General Appearance: Alert, Comfortable, No apparent distress Eye Exam: bilateral normal Ears, Nose, Throat: hearing grossly normal, nasal congestion, other - pharyngeal erythema Neck: full range of motion, supple, normal inspection Respiratory: chest non-tender, lungs clear, normal breath sounds Cardiovascular/Chest: normal peripheral pulses, regular rate, rhythm Peripheral Pulses: radial,right: 2+, radial,left: 2+ Gastrointestinal/Abdominal: non tender, soft, no organomegaly Back Exam: no CVA tenderness, no vertebral tenderness Neurologic: alert, oriented x 3 Skin Exam: normal color, warm/dry Lymphatic: no adenopathy Progress - Progress Progress: 02/23/19 09:32 Vital Signs - 8 hr 02/23/19 08:55 Temperature 100.6 F H Pulse Rate [R 76 finger] Respiratory 18 Rate Blood Pressure 159/82 [L Arm] O2 Sat by Pulse 97 Oximetry - Results/Orders Results/Orders: Laboratory Tests 02/23/19 02/23/19 02/23/19 09:24 09:24 09:31 WBC 10.8 RBC 4.65 L Hgb 14.5 Hct 41.7 L MCV 89.6 MCH 31.1 H MCHC 34.8 RDW 12.5 Plt Count 214 MPV 8.8 Absolute Neuts (auto) 8.30 H Absolute Lymphs (auto) 1.00 Absolute Monos (auto) 1.20 H Absolute Eos (auto) 0.10 Absolute Basos (auto) 0.10 Neutrophils % 77.4 Lymphocytes % 9.6 L Monocytes % 11.5 H Eosinophils % 1.0 Basophils % 0.5 PT 11.1 H INR 1.11 PTT (SP) 27.5 Sodium 134 L Potassium 3.8 Chloride 101 Carbon Dioxide 23 Anion Gap 13.8 BUN 12 Creatinine 1.05 BUN/Creatinine Ratio 11.4 Random Glucose 105 Serum Osmolality 268.4 L Calcium 8.9 Magnesium 1.8 Total Bilirubin 0.6 Direct Bilirubin 0.1 Indirect Bilirubin 0.5 AST 19 ALT 23 Alkaline Phosphatase 48 Creatine Kinase 167 CK-MB (CK-2) 1.4 CK-MB (CK-2) % Not Reportable Troponin I < 0.02 Serum Total Protein 7.6 Albumin 4.3 Lipase 18 L Urine Color Urine Appearance Urine pH Ur Specific [place] Urine Protein Urine Glucose (UA) Urine Ketones Urine Blood Urine Nitrite Urine Bilirubin Urine Urobilinogen Ur Leukocyte Esterase Urine RBC Urine WBC Ur Epithelial Cells Urine Bacteria Monoscreen Negative Group A Strep Rapid Positive 02/23/19 09:45 WBC RBC Hgb Hct MCV MCH MCHC RDW Plt Count MPV Absolute Neuts (auto) Absolute Lymphs (auto) Absolute Monos (auto) Absolute Eos (auto) Absolute Basos (auto) Neutrophils % Lymphocytes % Monocytes % Eosinophils % Basophils % PT INR PTT (SP) Sodium Potassium Chloride Carbon Dioxide Anion Gap BUN Creatinine BUN/Creatinine Ratio Random Glucose Serum Osmolality Calcium Magnesium Total Bilirubin Direct Bilirubin Indirect Bilirubin AST ALT Alkaline Phosphatase Creatine Kinase CK-MB (CK-2) CK-MB (CK-2) % Troponin I Serum Total Protein Albumin Lipase Urine Color Yellow Urine Appearance Clear Urine pH 8.5 H Ur Specific [place] 1.020 Urine Protein Negative Urine Glucose (UA) Negative Urine Ketones Negative Urine Blood Negative Urine Nitrite Negative Urine Bilirubin Negative Urine Urobilinogen 0.2 Ur Leukocyte Esterase Negative Urine RBC 0 Urine WBC 0 Ur Epithelial Cells 0 Urine Bacteria 0 Monoscreen Group A Strep Rapid Discuss alltest results with patient - EKG/XRAY/CT XRAY: chest - no abnormality noted Departure - Departure Clinical Impression: Strep sore throat, Abdominal discomfort Headache Qualifiers: Headache type: unspecified Headache chronicity pattern: unspecified pattern Intractability: not intractable Qualified Code(s): R51 - Headache Time of Disposition: 10:06 Disposition: Discharge to Home or Self Care Condition: Fair Departure Forms: ED Discharge - Pt. Copy, Patient Portal Self Enrollment Instructions: Strep Throat (DC) Prescriptions: Azithromycin [Zithromax Z-Сергей] 250 mg PO DAILY 6 Days #6 tab Home Medications: Ambulatory Orders Azithromycin [Zithromax Z-Сергей] 250 mg PO DAILY 6 Days #6 tab 02/23/19 Additional Instructions: May use warm salt water gargle 3 x a day until better;Follow up with primary Md 25 February 2019 for recheck;May take Tylenol 500mg one tablet every 6 hours for pain /fever as needed
[2019-02-23] MEDS ORDERED: LACTATED RINGERS 1,000 ML IVS ONE (09:11)
[2019-02-23] MEDS ORDERED: PROCHLORPERAZINE INJ 10 MG/2 ML VIAL IV ONE (09:11)
[2019-02-23] MEDS ORDERED: KETOROLAC TROMETHAMINE INJ 30 MG/ML VIAL IV ONE (09:11)
[2019-02-23] MEDS ORDERED: raNITIdine HCL INJ 50 MG in SODIUM CHLORIDE 0.9% 50ML 50 ML IVPB ONE (09:11)
[2019-02-23] MEDS ORDERED: SODIUM CHLORIDE 0.9% 50ML 50 ML ONE (09:19)
[2019-02-23] MEDS ORDERED: raNITIdine HCL INJ 25 MG/ML VIAL ONE (09:19)
[2019-02-23] MEDS ORDERED: DEXAMETHASONE INJ 4 MG/ML VIAL IV ONE (09:49)
[2019-02-23] MEDS ORDERED: AZITHROMYCIN IV 500 MG in SODIUM CHLORIDE 0.9% 250ML 250 ML IVPB ONE (09:49)
[2019-02-23] MEDS ORDERED: AZITHROMYCIN IV 500 MG VIAL IVPB ONE (09:56)
[2019-02-23] MEDS ORDERED: SODIUM CHLORIDE 0.9% 250ML 0 ML ONE (09:57)
[2019-02-23] MEDS ORDERED: AZITHROMYCIN 250 MG TAB PO ONE (10:01)
--- NOTE | 2019-02-23 10:20 | RAD ---
EXAM: XR Chest, 1 View CLINICAL HISTORY: 23 years old and is Male; cough/fever TECHNIQUE: Frontal view of the chest. COMPARISON: 09/27/2018 FINDINGS: Limitations: None. Lungs: Unremarkable. No consolidation. Pleural space: Unremarkable. No pneumothorax. Heart: Unremarkable. No cardiomegaly. Mediastinum: Unremarkable. Bones/joints: Unremarkable. IMPRESSION: No abnormality noted. Electronically signed by: Camila Gale MD 02/23/2019 10:18 AM CDT
[2019-02-23 10:48] VITALS: BP 133/75; TEMP 98.2; O2SAT 97
== END 2019-02-23 10:48 | disposition home or self-care (01) ==
LOC: ER 08:52
DX: J02.0 Streptococcal pharyngitis (principal); R10.9 Unspecified abdominal pain; R51 Headache; F32.9 Major depressive disorder, single episode, unspecified; Z87.891 Personal history of nicotine dependence; Z88.0 Allergy status to penicillin
CPT/HCPCS: 36415; 71045; 80048; 80076; 81001; 82550; 82553; 83690; 84484; 85025; 85610; 85730; 86403; 87880; A4216; J0780; J1100; J1885; J2780; J7120; Q0144

== ENCOUNTER 2019-02-25 11:05 | Emergency (ER) | payer SELFPAY ==
[2019-02-25 11:22] VITALS: O2SAT 97
--- NOTE | 2019-02-25 11:26 | ED.PDOC ---
History of Present Illness - General Chief Complaint: General Stated Complaint: neck stiffness Time Seen by Provider: 02/25/19 11:21 Source: patient Exam Limitations: no limitations - History of Present Illness Initial Comments: Loco Marcum 23 y/o male diagnosed with strep throat 2 days ago and was placed on zithromax since allergic to PCN came today with neck pains.No longer febrile.Still with pain on Swallowing.No NV. Timing/Duration: other - 2 days Severity: moderate Improving Factors: nothing Worsening Factors: nothing Associated Symptoms: other - see hpi Allergies/Adverse Reactions: Allergies Amoxicillin Allergy (Verified 02/23/19 09:12) Penicillins Allergy (Verified 09/20/17 07:28) Unknown Home Medications: Ambulatory Orders Azithromycin [Zithromax Z-Сергей] 250 mg PO DAILY 6 Days #6 tab 02/23/19 predniSONE 20 mg PO DAILY 5 Days #5 tab 02/25/19 Review of Systems - Review of Systems EENTM: States: see HPI, throat pain Musculoskeletal: States: neck pain All other Systems: Reviewed and Negative, No Change from Baseline Past Medical History (General) - Patient Medical History Hx Seizures: No Hx Stroke: No Hx Dementia: No Hx Asthma: No Hx of COPD: No Hx Cardiac Disorders: No Hx Congestive Heart Failure: No Hx Pacemaker: No Hx Hypertension: No Hx Thyroid Disease: No Hx Diabetes: No Hx Gastroesophageal Reflux: No Hx Renal Disease: No Hx Cancer: No Hx of HIV: No Hx Hepatitis C: No Hx MRSA: No Hx Other PMH: Yes - strep throat Surgical History: tonsillectomy - Vaccination History Hx Tetanus, Diphtheria Vaccination: Yes Hx Influenza Vaccination: No Hx Pneumococcal Vaccination: No - Social History Hx Tobacco Use: Yes Hx Chewing Tobacco Use: Yes Hx Alcohol Use: Yes Hx Substance Use: Yes Hx Substance Use Treatment: No Hx Depression: Yes Hx Physical Abuse: No Hx Emotional Abuse: No Hx Suspected Abuse: No - Female History Patient : No Family Medical History - Family History Mother Family History: No Known Living Status: Still Living Physical Exam - Physical Exam General Appearance: Alert, Comfortable, No apparent distress Eye Exam: bilateral normal Ears, Nose, Throat: hearing grossly normal, pharyngeal erythema - w/ exudate right Respiratory: lungs clear, normal breath sounds Cardiovascular/Chest: normal peripheral pulses, regular rate, rhythm, no murmur Peripheral Pulses: radial,right: 2+, radial,left: 2+ Gastrointestinal/Abdominal: normal bowel sounds, non tender, soft Extremity: non-tender, no pedal edema, no calf tenderness Neurologic: alert, oriented x 3 Skin Exam: normal color, warm/dry Lymphatic: no adenopathy Progress - Progress Progress: 02/25/19 11:29 Vital Signs - 8 hr 02/25/19 02/25/19 11:19 11:24 Temperature 99 F Pulse Rate [ 65 Right Brachial] Respiratory 20 20 Rate Blood Pressure 138/76 [Right Arm] O2 Sat by Pulse 97 Oximetry - Results/Orders Results/Orders: discuss Neck CT result with patient - EKG/XRAY/CT CT Ordered: Yes - Neck-soft tissue enlarged lymph node Departure - Departure Clinical Impression: Strep sore throat, Acute lymphadenitis of neck Time of Disposition: 12:49 Disposition: Discharge to Home or Self Care Condition: Fair Departure Forms: ED Discharge - Pt. Copy, Patient Portal Self Enrollment Diet: other - Drink extra fluids Referrals: UNKNOWN,PHYSICIAN [Primary Care Provider] - 1-2 Weeks Prescriptions: predniSONE 20 mg PO DAILY 5 Days #5 tab Home Medications: Ambulatory Orders Azithromycin [Zithromax Z-Сергей] 250 mg PO DAILY 6 Days #6 tab 02/23/19 predniSONE 20 mg PO DAILY 5 Days #5 tab 02/25/19 Additional Instructions: Continue with antibiotics and salt water gargle;May take over the counter Aleve 1-2 tablets am/pm for pain
[2019-02-25] MEDS ORDERED: cefTRIAXone SODIUM 1 GM VIAL IM ONE (11:29)
[2019-02-25] MEDS ORDERED: KETOROLAC TROMETHAMINE INJ 30 MG/ML VIAL IM ONE (11:29)
[2019-02-25] MEDS ORDERED: KETOROLAC TROMETHAMINE INJ 30 MG/ML VIAL IV ONE (11:43)
[2019-02-25] MEDS ORDERED: cefTRIAXone SODIUM 1 GM VIAL ONE (11:43)
[2019-02-25] MEDS ORDERED: cefTRIAXone SODIUM 1 GM in SODIUM CHL 0.9% 50ML MIN-BAG+ 50 ML IVPB ONE (11:43)
[2019-02-25] MEDS ORDERED: SODIUM CHL 0.9% 50ML MIN-BAG+ 50 ML IVPB ONE (11:44)
--- NOTE | 2019-02-25 12:42 | CT ---
CT NECK WITH IV CONTRAST HISTORY: 23 years Male pain neck/strep infection COMPARISON: None. TECHNIQUE: Helical tomographic images of the neck were obtained after the intravenous administration of 100 cc of Isovue-370. Coronal and sagittal reformatted images were also provided. This exam was performed according to our departmental dose-optimization program, which includes automated exposure control, adjustment of the mA and/or kV according to patient size and/or use of iterative reconstruction technique. FINDINGS: Intracranial structures: Unremarkable. Orbits, paranasal sinuses, and skull base: Unremarkable. Aerodigestive tract: Patent throughout. Thyroid, submandibular, and parotid glands: Unremarkable. Superficial and deep soft tissue spaces: Mild diffuse prominence of the pharyngeal lymphoid ring. No focal fluid collection or abscess.. Lymph nodes: Mildly prominent bilateral cervical lymph nodes, likely reactive. The largest is a right level 3 node (2/40) measuring up to 1.4 cm. Vascular structures: Unremarkable. Osseous structures: No acute process detected. Included thorax: No acute process detected. IMPRESSION: Prominence of the pharyngeal lymphoid ring and bilateral prominent cervical lymph nodes, consistent with reported history of strep pharyngitis. No fluid collection or abscess observed. Electronically signed by: Timothy Manuel MD 02/25/2019 12:39 PM CDT
[2019-02-25 13:00] VITALS: BP 120/72; TEMP 97.2
== END 2019-02-25 12:59 | disposition home or self-care (01) ==
LOC: ER 11:05
DX: J02.0 Streptococcal pharyngitis (principal); I88.9 Nonspecific lymphadenitis, unspecified; F32.9 Major depressive disorder, single episode, unspecified; Z87.891 Personal history of nicotine dependence; Z88.0 Allergy status to penicillin
CPT/HCPCS: 70491; 82565; 84520; J0696; J1885; J7050

== ENCOUNTER 2019-03-20 23:06 | Emergency (ER) | payer SELFPAY ==
[2019-03-20] MEDS ORDERED: POVIDONE IODINE 10 % 15 ML UD TOP ONE (23:32)
[2019-03-20] MEDS: TETANUS,DIPHTHERIA,PERTUSSIS 1 EA SYG IM ONE (23:36)
[2019-03-20] MEDS: SULFA/TRIMETH 800/160 (DS) TAB 1 EA TAB PO ONE (23:38)
--- NOTE | 2019-03-20 23:40 | ED.PDOC ---
History of Present Illness - General Chief Complaint: Skin/Abrasion/Tear Time Seen by Provider: 03/20/19 23:29 Source: patient Exam Limitations: no limitations - History of Present Illness Initial Comments: the patient is a 23-year-old male presenting to the emergency room secondary to having snacks the bottom of his left foot on a nail at home. It gave him a skin tear and a U shape approximately 1 cm. He does not appear to have penetrated deeply. No other injury. He is due for a tetanus shot. Timing/Duration: momentarily Severity: mild Improving Factors: nothing Worsening Factors: nothing Associated Symptoms: denies symptoms Allergies/Adverse Reactions: Allergies Amoxicillin Allergy (Verified 02/23/19 09:12) Penicillins Allergy (Verified 09/20/17 07:28) Unknown Home Medications: Ambulatory Orders Azithromycin [Zithromax Z-Сергей] 250 mg PO DAILY 6 Days #6 tab 02/23/19 predniSONE 20 mg PO DAILY 5 Days #5 tab 02/25/19 Sulfa/Trimeth 800/160 (Ds) Tab [Bactrim DS Tab] 1 ea PO BID #8 tab 03/20/19 Review of Systems - Review of Systems Constitutional: States: no symptoms reported EENTM: States: no symptoms reported Respiratory: States: no symptoms reported Cardiology: States: no symptoms reported Gastrointestinal/Abdominal: States: no symptoms reported Genitourinary: States: no symptoms reported Musculoskeletal: States: no symptoms reported Skin: States: see HPI Neurological: States: no symptoms reported Endocrine: States: no symptoms reported All other Systems: No Change from Baseline Past Medical History (General) - Patient Medical History Hx Seizures: No Hx Stroke: No Hx Dementia: No Hx Asthma: No Hx of COPD: No Hx Cardiac Disorders: No Hx Congestive Heart Failure: No Hx Pacemaker: No Hx Hypertension: No Hx Thyroid Disease: No Hx Diabetes: No Hx Gastroesophageal Reflux: No Hx Renal Disease: No Hx Cancer: No Hx of HIV: No Hx Hepatitis C: No Hx MRSA: No - Vaccination History Hx Tetanus, Diphtheria Vaccination: Yes Hx Influenza Vaccination: No Hx Pneumococcal Vaccination: No - Social History Hx Tobacco Use: Yes Hx Chewing Tobacco Use: Yes Hx Alcohol Use: Yes Hx Substance Use: Yes Hx Substance Use Treatment: No Hx Depression: Yes Hx Physical Abuse: No Hx Emotional Abuse: No Hx Suspected Abuse: No - Female History Patient : No Family Medical History - Family History Mother Family History: No Known Living Status: Still Living Physical Exam - Physical Exam General Appearance: Alert, Comfortable, No apparent distress Eye Exam: bilateral normal Ears, Nose, Throat: hearing grossly normal Neck: full range of motion Respiratory: no respiratory distress, no accessory muscle use Cardiovascular/Chest: normal peripheral pulses, no edema Peripheral Pulses: dorsalis pedis,right: 2+, dorsalis pedis,left: 2+, posterior tibialis,right: 2+, posterior tibialis,left: 2+ Rectal Exam: deferred Extremity: normal range of motion, no pedal edema, no calf tenderness, normal capillary refill 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 Progress - Progress Progress: 03/20/19 23:52 the patient a 23-year-old male presenting secondary to a skin care to the bottom of his left foot caused by a nail. The patient received a tetanus shot as well as a dose of Bactrim. He will be placed on Bactrim for the next 4 days. He can use triple antibiotic ointment and a Band-Aid to cover the wound until it is healed. Monitor for any evidence of infection. The wound was irrigated here. ER warnings were given for any worsening. it will take several weeks to heal. Departure - Departure Clinical Impression: Laceration of left foot Qualifiers: Encounter type: initial encounter Qualified Code(s): S91.312A - Laceration without foreign body, left foot, initial encounter Disposition: Discharge to Home or Self Care Condition: Fair Departure Forms: ED Discharge - Pt. Copy, Patient Portal Self Enrollment Instructions: Wound Care (DC), Laceration Repair Diet: regular diet Activity: increase activity as tolerated Referrals: UNKNOWN,PHYSICIAN [Primary Care Provider] - 1-2 Weeks Prescriptions: Sulfa/Trimeth 800/160 (Ds) Tab [Bactrim DS Tab] 1 ea PO BID #8 tab Home Medications: Ambulatory Orders Azithromycin [Zithromax Z-Сергей] 250 mg PO DAILY 6 Days #6 tab 02/23/19 predniSONE 20 mg PO DAILY 5 Days #5 tab 02/25/19 Sulfa/Trimeth 800/160 (Ds) Tab [Bactrim DS Tab] 1 ea PO BID #8 tab 03/20/19 Additional Instructions: the patient a 23-year-old male presenting secondary to a skin care to the bottom of his left foot caused by a nail. The patient received a tetanus shot as well as a dose of Bactrim. He will be placed on Bactrim for the next 4 days. He can use triple antibiotic ointment and a Band-Aid to cover the wound until it is healed. Monitor for any evidence of infection. The wound was irrigated here. ER warnings were given for any worsening. it will take several weeks to heal.
[2019-03-21 00:01] VITALS: BP 141/72; TEMP 98.3; O2SAT 96
== END 2019-03-21 00:01 | disposition home or self-care (01) ==
LOC: ER 23:06
DX: S91.312A Laceration without foreign body, left foot, initial encounter (principal); F32.9 Major depressive disorder, single episode, unspecified; Z23 Encounter for immunization; Z88.0 Allergy status to penicillin; Z87.891 Personal history of nicotine dependence; W45.0XXA Nail entering through skin, initial encounter; Y92.9 Unspecified place or not applicable

== ENCOUNTER 2019-04-06 09:27 | Emergency (ER) | payer SELFPAY ==
[2019-04-06 09:41] VITALS: O2SAT 97
--- NOTE | 2019-04-06 09:49 | ED.PDOC ---
History of Present Illness - General Chief Complaint: ENT Problem Stated Complaint: sore throat,cough Time Seen by Provider: 04/06/19 09:33 Source: patient Exam Limitations: no limitations - History of Present Illness Initial Comments: the patient is a 23-year-old male presenting with a sore throat starting about 16 hours ago. No real sinus drainage. He is having a mild laryngitis. He does have a mild clearing cough. No respiratory distress. No fevers. No severe pain. He is not taking any medications. Timing/Duration: other - 16 hours Severity: mild Improving Factors: nothing Worsening Factors: nothing Associated Symptoms: cough Allergies/Adverse Reactions: Allergies Amoxicillin Allergy (Verified 02/23/19 09:12) Penicillins Allergy (Verified 09/20/17 07:28) Unknown Home Medications: Ambulatory Orders NK 04/06/19 Review of Systems - Review of Systems Constitutional: States: no symptoms reported EENTM: States: throat pain Respiratory: States: cough Cardiology: States: no symptoms reported Gastrointestinal/Abdominal: States: no symptoms reported Genitourinary: States: no symptoms reported Musculoskeletal: States: no symptoms reported Skin: States: no symptoms reported Neurological: States: no symptoms reported Endocrine: States: no symptoms reported Hematologic/Lymphatic: States: no symptoms reported All other Systems: No Change from Baseline Past Medical History (General) - Patient Medical History Hx Seizures: No Hx Stroke: No Hx Dementia: No Hx Asthma: No Hx of COPD: No Hx Cardiac Disorders: No Hx Congestive Heart Failure: No Hx Pacemaker: No Hx Hypertension: No Hx Thyroid Disease: No Hx Diabetes: No Hx Gastroesophageal Reflux: No Hx Renal Disease: No Hx Cancer: No Hx of HIV: No Hx Hepatitis C: No Hx MRSA: No Surgical History: tonsillectomy - Vaccination History Hx Tetanus, Diphtheria Vaccination: Yes Hx Influenza Vaccination: Yes Hx Pneumococcal Vaccination: No - Social History Hx Tobacco Use: Yes Hx Chewing Tobacco Use: Yes Hx Alcohol Use: Yes Hx Substance Use: Yes Hx Substance Use Treatment: No Hx Depression: Yes Hx Physical Abuse: No Hx Emotional Abuse: No Hx Suspected Abuse: No - Female History Patient : No Family Medical History - Family History Mother Family History: No Known Living Status: Still Living Physical Exam - Physical Exam General Appearance: Alert, Comfortable, No apparent distress Eye Exam: bilateral normal Ears, Nose, Throat: hearing grossly normal, pharyngeal erythema - mild Neck: full range of motion, supple Respiratory: lungs clear, normal breath sounds, no respiratory distress, no accessory muscle use Cardiovascular/Chest: normal peripheral pulses, regular rate, rhythm, no edema Peripheral Pulses: radial,right: 2+, radial,left: 2+ Gastrointestinal/Abdominal: non tender - obese, soft Rectal Exam: deferred Back Exam: no CVA tenderness, no vertebral tenderness Extremity: non-tender, normal inspection, no pedal edema, normal capillary refill 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 Rapid strep was negative. This is most likely viral in origin. Supportive care is recommended including keeping well hydrated, Motrin or Aleve for discomfort and the patient will receive 1 dose of oral prednisone here primarily for the laryngitis component. ER warnings were given. Keep routine follow-up with primary care doctor. Departure - Departure Clinical Impression: Viral URI Disposition: Discharge to Home or Self Care Condition: Fair Departure Forms: ED Discharge - Pt. Copy, Patient Portal Self Enrollment Instructions: Laryngitis (DC) Diet: regular diet Activity: increase activity as tolerated Home Medications: Ambulatory Orders NK 04/06/19 Additional Instructions: the patient is a 23-year-old male presenting to the emergency room secondary to pharyngitis and laryngitis starting last night. Rapid strep was negative. This is most likely viral in origin. Supportive care is recommended including keeping well hydrated, Motrin or Aleve for discomfort and the patient will receive 1 dose of oral prednisone here primarily for the laryngitis component. ER warnings were given. Keep routine follow-up with primary care doctor.
[2019-04-06] MEDS ORDERED: predniSONE 20 MG TAB PO ONE (10:13)
[2019-04-06 10:22] VITALS: BP 139/80; TEMP 97.2
== END 2019-04-06 10:21 | disposition home or self-care (01) ==
LOC: ER 09:27
DX: J06.9 Acute upper respiratory infection, unspecified (principal); F32.9 Major depressive disorder, single episode, unspecified; Z87.891 Personal history of nicotine dependence; Z88.0 Allergy status to penicillin
CPT/HCPCS: 87070; 87880; J7512

== ENCOUNTER 2019-04-08 07:01 | Emergency (ER) | payer SELFPAY ==
--- NOTE | 2019-04-08 07:26 | ED.PDOC ---
History of Present Illness - General Chief Complaint: Abdominal Pain Stated Complaint: epigastric pain,vomiting Time Seen by Provider: 04/08/19 07:11 Source: patient Exam Limitations: no limitations - History of Present Illness Initial Comments: Patient presents with abdominal pain, N/V x 6 for 3 hours. The pain is LUQ, non-radiating, sharp, multiple previous episodes. He says he thinks he has a "stomach bacteria" but that he has not seen a physician for it. He reports that he vomits every morning one time. Last BM was this morning and was normal. Last meal was last night. No previous abdominal surgeries. He says that when this happens he gets treated with nausea medications. No other complaints. Timing/Duration: 4-6 hours Severity: moderate Improving Factors: nothing Worsening Factors: nothing Associated Symptoms: other - as in HPI Allergies/Adverse Reactions: Allergies Amoxicillin Allergy (Verified 02/23/19 09:12) Penicillins Allergy (Verified 09/20/17 07:28) Unknown Home Medications: Ambulatory Orders Omeprazole 20 mg PO QAM #30 cap 04/08/19 Ondansetron HCl [Zofran] 4 mg PO Q6HRS PRN #12 tab 04/08/19 Promethazine Tab [Phenergan Tablet] 25 mg PO .Q4H PRN #12 tab 04/08/19 Review of Systems - Review of Systems Constitutional: States: no symptoms reported EENTM: States: no symptoms reported Respiratory: States: no symptoms reported Cardiology: States: no symptoms reported Gastrointestinal/Abdominal: States: see HPI Genitourinary: States: no symptoms reported Musculoskeletal: States: no symptoms reported Skin: States: no symptoms reported Neurological: States: no symptoms reported Endocrine: States: no symptoms reported Past Medical History (General) - Patient Medical History Hx Seizures: No Hx Stroke: No Hx Dementia: No Hx Asthma: No Hx of COPD: No Hx Cardiac Disorders: No Hx Congestive Heart Failure: No Hx Pacemaker: No Hx Hypertension: No Hx Thyroid Disease: No Hx Diabetes: No Hx Gastroesophageal Reflux: No Hx Renal Disease: No Hx Cancer: No Hx of HIV: No Hx Hepatitis C: No Hx MRSA: No Surgical History: tonsillectomy - Vaccination History Hx Tetanus, Diphtheria Vaccination: Yes Hx Influenza Vaccination: No Hx Pneumococcal Vaccination: No - Social History Hx Tobacco Use: Yes Hx Chewing Tobacco Use: Yes Hx Alcohol Use: Yes Hx Substance Use: Yes Hx Substance Use Treatment: No Hx Depression: Yes Hx Physical Abuse: No Hx Emotional Abuse: No Hx Suspected Abuse: No - Female History Patient : No Family Medical History - Family History Mother Family History: No Known Living Status: Still Living Physical Exam - Physical Exam General Appearance: Alert Respiratory: lungs clear, normal breath sounds Cardiovascular/Chest: normal peripheral pulses, regular rate, rhythm Gastrointestinal/Abdominal: normal bowel sounds, non tender, soft Back Exam: normal inspection, no CVA tenderness Progress - Progress Progress: 04/08/19 09:59 Patient's nausea improved with Zofran and Phenergan. He was given RX for those and for omeprazole as well as instructions for how to correctly use omeprazole. Care instructions given. E.R. warnings given. Questions were elicited and answered. Patient voiced understanding and agreement with the plan. Departure - Departure Clinical Impression: Gastritis, Nausea & vomiting Disposition: Discharge to Home or Self Care Condition: Good Departure Forms: ED Discharge - Pt. Copy, Patient Portal Self Enrollment Instructions: Acid Reflux (Gastroesophageal Reflux Disease), Adult (DC), [place] Diet, Gastritis (DC) Diet: other - see dietary recommendations in handout Activity: increase activity as tolerated Prescriptions: Ondansetron HCl [Zofran] 4 mg PO Q6HRS PRN #12 tab PRN Reason: Nausea Omeprazole 20 mg PO QAM #30 cap Promethazine Tab [Phenergan Tablet] 25 mg PO .Q4H PRN #12 tab PRN Reason: Nausea/Vomiting Home Medications: Ambulatory Orders Omeprazole 20 mg PO QAM #30 cap 04/08/19 Ondansetron HCl [Zofran] 4 mg PO Q6HRS PRN #12 tab 04/08/19 Promethazine Tab [Phenergan Tablet] 25 mg PO .Q4H PRN #12 tab 04/08/19 Additional Instructions: Take medications as prescribed. See your regular doctor or return to the E.R. if symptoms worsen or for temperature above 100.3.
[2019-04-08] MEDS ORDERED: ONDANSETRON INJ 4 MG/2 ML VIAL IV ONE (07:28)
[2019-04-08] MEDS ORDERED: SODIUM CHLORIDE 0.9% 1000ML 1,000 ML IVS ONE (08:33)
[2019-04-08] MEDS ORDERED: PROMETHAZINE HCL INJ 25 MG in SODIUM CHLORIDE 0.9% 50ML 50 ML IVPB ONE (09:26)
[2019-04-08] MEDS ORDERED: SODIUM CHLORIDE 0.9% 50ML 50 ML ONE (09:27)
[2019-04-08] MEDS ORDERED: PROMETHAZINE HCL INJ 25 MG/ML VIAL ONE (09:27)
[2019-04-08 10:19] VITALS: BP 129/75; TEMP 98.4; O2SAT 98
== END 2019-04-08 10:17 | disposition home or self-care (01) ==
LOC: ER 07:01
DX: K29.70 Gastritis, unspecified, without bleeding (principal); F32.9 Major depressive disorder, single episode, unspecified; Z87.891 Personal history of nicotine dependence; Z88.0 Allergy status to penicillin
CPT/HCPCS: 36415; 80053; 80307; 81001; 83690; 85025; A4216; J2405; J2550; J7030

== ENCOUNTER → 2019-12-29 | Outpatient (CLI) | payer BC ==
--- NOTE | 2019-12-29 18:33 | CT ---
EXAM DESCRIPTION: Abdomen/Pelvis w/wo Contrast CLINICAL HISTORY: 24 years Male UNSPECIFIED ABD PAIN COMPARISON: Radiograph of the lumbar spine dated October 08, 2012. TECHNIQUE: Images were obtained in axial, sagittal, and coronal planes. Oral contrast was administered. Images were obtained prior to and following the intravenous administration of contrast material.. This exam was performed according to our departmental dose-optimization program which includes use of Automated Exposure Control, adjustment of the mA and/or kV according to patient size and/or use of iterative reconstruction technique. FINDINGS: No abnormality involving the liver. Spleen is enlarged measuring 13.3 cm in greatest dimension. Unremarkable pancreas, gallbladder, and adrenal glands bilaterally. No obstructing renal calcifications bilaterally. No hydronephrosis bilaterally. Unremarkable bladder. Appendix within normal limits. No bowel obstruction, perforation, or inflammation. No dilatation abdominal aorta. No adenopathy or abnormal fluid collections seen. Unremarkable portal vein. No abnormality lower lungs bilaterally. No acute osseous abnormality. Mild degenerative change thoracolumbar spine. Mild anterior wedging vertebral bodies thoracolumbar region unchanged when correlated with the prior radiograph of the lumbar spine. IMPRESSION: No acute intra-abdominal abnormality. Electronically signed by: Ayana Maza MD 12/29/2019 6:31 PM CDT
== END ==
LOC: CT 16:58
PROVIDERS: ATTEND Emergency Medicine
DX: R10.9 Unspecified abdominal pain (principal)

== ENCOUNTER 2020-09-12 01:58 | Emergency (ER) | payer BC ==
[2020-09-12 02:15] VITALS: TEMP 99.8
--- NOTE | 2020-09-12 02:16 | ED.PDOC ---
History of Present Illness - General Chief Complaint: Fever Stated Complaint: fever, sore throat, thinks he has strep Time Seen by Provider: 09/12/20 02:06 Source: patient, Vital Signs reviewed, old records Exam Limitations: no limitations - History of Present Illness Initial Comments: Pt presents to ED with 1 hr h/o fever and sore throat. States he awoke from sleep with sore throat and took his temp and was 103. He ttok Tylenol and came to ED. Denies cough, difficulty breathing or swallowing. Denies any recent sick contacts. Review of Systems - Review of Systems Constitutional: States: fever. Denies: chills EENTM: States: throat pain. Denies: ear pain, nose congestion Respiratory: Denies: cough, short of breath Cardiology: Denies: chest pain, palpitations, syncope Gastrointestinal/Abdominal: Denies: abdominal pain, diarrhea, vomiting Skin: Denies: rash All other Systems: Reviewed and Negative Past Medical History (General) - Patient Medical History Hx Seizures: No Hx Stroke: No Hx Dementia: No Hx Asthma: No Hx of COPD: No Hx Cardiac Disorders: No Hx Congestive Heart Failure: No Hx Pacemaker: No Hx Hypertension: No Hx Thyroid Disease: No Hx Diabetes: No Hx Gastroesophageal Reflux: No Hx Renal Disease: No Hx Cancer: No Hx of HIV: No Hx Hepatitis C: No Hx MRSA: No - Vaccination History Hx Tetanus, Diphtheria Vaccination: Yes Hx Influenza Vaccination: No Hx Pneumococcal Vaccination: No - Social History Hx Tobacco Use: Yes Hx Chewing Tobacco Use: Yes Hx Alcohol Use: Yes Hx Substance Use: Yes Hx Substance Use Treatment: No Hx Depression: Yes Hx Physical Abuse: No Hx Emotional Abuse: No Hx Suspected Abuse: No - Female History Patient : No Family Medical History - Family History Mother Family History: No Known Living Status: Still Living Physical Exam - Physical Exam General Appearance: Alert, Comfortable, No apparent distress ENT Exam: other - Oropharynx has erythema. no edema or exudates. No uvular shift or peritonsilar mass. Handles secretions well. Neck: non-tender, full range of motion, supple Respiratory: chest non-tender, lungs clear, normal breath sounds, no respiratory distress Cardiovascular/Chest: regular rate, rhythm Gastrointestinal/Abdominal: non tender, soft Extremity: normal range of motion, non-tender Neurologic: no motor/sensory deficits, alert, normal mood/affect Skin Exam: normal color, warm/dry Progress - Progress Progress: 09/12/20 02:25 Pt has strep pheryngitis with no sign of abscess at this time. Tolerating po fluids well. Due to allergies, will treat with Z Pack. Tyl/motrin as needed and will f/u with pcp in 1-2 days for recheck. srp given. - Results/Orders Results/Orders: STREP SWAB- POSITIVE Departure - Departure Clinical Impression: Strep pharyngitis, Acute febrile illness Time of Disposition: 02:23 Disposition: Discharge to Home or Self Care Condition: Good Departure Forms: ED Discharge - Pt. Copy, Patient Portal Self Enrollment Instructions: Sore Throat, Adult (DC) Diet: resume usual diet Activity: increase activity as tolerated Referrals: LADI ROMO [Primary Care Provider] - 1-2 Days Prescriptions: Azithromycin [Zithromax Z-Сергей] 250 mg PO DAILY #6 tab Home Medications: Ambulatory Orders Omeprazole 20 mg PO QAM #30 cap 04/08/19 Ondansetron HCl [Zofran] 4 mg PO Q6HRS PRN #12 tab 04/08/19 Promethazine Tab [Phenergan Tablet] 25 mg PO .Q4H PRN #12 tab 04/08/19 Azithromycin [Zithromax Z-Сергей] 250 mg PO DAILY #6 tab 09/12/20
[2020-09-12] MEDS: IBUPROFEN 200 MG TAB PO ONE (02:21)
[2020-09-12 02:26] VITALS: BP 121/63; O2SAT 96
== END 2020-09-12 02:29 | disposition home or self-care (01) ==
LOC: ER 01:58
DX: J02.0 Streptococcal pharyngitis (principal); F32.9 Major depressive disorder, single episode, unspecified; Z87.891 Personal history of nicotine dependence

== ENCOUNTER 2020-09-12 18:27 | Emergency (ER) | payer BC ==
[2020-09-12 18:46] VITALS: TEMP 99.5
[2020-09-12] MEDS: ALUM & MAG HYDROX-SIMETHICONE 30 ML, LIDOCAINE VISCOUS 2% 15 ML PO ONE ×2 (18:53)
[2020-09-12] MEDS: SODIUM CHLORIDE 0.9% 1000ML 1,000 ML IVS ONE (18:54)
[2020-09-12] MEDS: KETOROLAC TROMETHAMINE INJ 30 MG/ML VIAL IM ONE (18:54)
[2020-09-12] MEDS: PROMETHAZINE HCL INJ 25 MG in SODIUM CHLORIDE 0.9% 50ML 50 ML IVPB ONE (18:54)
[2020-09-12] MEDS: PANTOPRAZOLE SODIUM IV 40 MG VIAL IV ONE (18:55)
[2020-09-12] MEDS ORDERED: LIDOCAINE 1% 2 ML VIAL INJ ONE (19:01)
[2020-09-12] MEDS: cefTRIAXone SODIUM 1 GM VIAL IM ONE (19:03)
--- NOTE | 2020-09-12 19:41 | ED.PDOC ---
History of Present Illness - General Chief Complaint: General Stated Complaint: N/V, cant sleep/BM, headache, epigastic pain Time Seen by Provider: 09/12/20 18:32 Source: patient Exam Limitations: no limitations - History of Present Illness Initial Comments: The patient is a 24-year-old male presented emergency room secondary to uncontrolled pain from a strep throat. Additionally he has had some nausea and vomiting associated with it he does have a headache. No chest pain or shortness of breath. No blood in the vomitus. The patient thinks he threw up his azithromycin that he was written for this morning. Timing/Duration: 24 hours Severity: severe Improving Factors: nothing Worsening Factors: nothing Associated Symptoms: fever/chills, headaches, loss of appetite, malaise, nausea/vomiting Allergies/Adverse Reactions: Allergies Amoxicillin Allergy (Verified 09/12/20 18:45) Penicillins Allergy (Verified 09/12/20 18:45) Unknown Home Medications: Ambulatory Orders Omeprazole 20 mg PO QAM #30 cap 04/08/19 Ondansetron HCl [Zofran] 4 mg PO Q6HRS PRN #12 tab 04/08/19 Promethazine Tab [Phenergan Tablet] 25 mg PO .Q4H PRN #12 tab 04/08/19 Azithromycin [Zithromax Z-Сергей] 250 mg PO DAILY #6 tab 09/12/20 Famotidine 20 mg PO DAILY #30 tab 09/12/20 Ondansetron Odt [Zofran ODT] 4 mg PO Q8HR PRN #5 tab 09/12/20 Sucralfate Tab [Carafate Tab] 1 gm PO QID #60 tab 09/12/20 Review of Systems - Review of Systems Constitutional: States: malaise EENTM: States: throat pain Respiratory: States: no symptoms reported Cardiology: States: no symptoms reported Gastrointestinal/Abdominal: States: nausea, vomiting Genitourinary: States: no symptoms reported Musculoskeletal: States: no symptoms reported Skin: States: no symptoms reported Neurological: States: headache Endocrine: States: no symptoms reported All other Systems: No Change from Baseline Past Medical History (General) - Patient Medical History Hx Seizures: No Hx Stroke: No Hx Dementia: No Hx Asthma: No Hx of COPD: No Hx Cardiac Disorders: No Hx Congestive Heart Failure: No Hx Pacemaker: No Hx Hypertension: No Hx Thyroid Disease: No Hx Diabetes: No Hx Gastroesophageal Reflux: No Hx Renal Disease: No Hx Cancer: No Hx of HIV: No Hx Hepatitis C: No Hx MRSA: No - Vaccination History Hx Tetanus, Diphtheria Vaccination: Yes Hx Influenza Vaccination: No Hx Pneumococcal Vaccination: No - Social History Hx Tobacco Use: Yes Hx Chewing Tobacco Use: Yes Hx Alcohol Use: Yes Hx Substance Use: Yes Hx Substance Use Treatment: No Hx Depression: Yes Hx Physical Abuse: No Hx Emotional Abuse: No Hx Suspected Abuse: No - Female History Patient is a Female of Child Bearing Age (10 -59 yrs old): No Patient : No Family Medical History - Family History Mother Family History: No Known Living Status: Still Living Physical Exam - Physical Exam General Appearance: Alert, No apparent distress Eye Exam: bilateral normal Ears, Nose, Throat: hearing grossly normal, pharyngeal erythema Neck: full range of motion, supple Respiratory: lungs clear, normal breath sounds, no respiratory distress, no accessory muscle use Cardiovascular/Chest: normal peripheral pulses, regular rate, rhythm, no edema Peripheral Pulses: radial,right: 2+, radial,left: 2+ Gastrointestinal/Abdominal: non tender, soft Rectal Exam: deferred Extremity: normal range of motion, non-tender, normal inspection, no pedal edema, normal capillary refill Neurologic: family reunification specialist II-XII nml as tested, alert, normal mood/affect, oriented x 3 Skin Exam: normal color Comments: Vital Signs - 24 hr 09/12/20 09/12/20 18:30 18:36 Temperature 99.5 F Pulse Rate [ 94 H 94 H Pulse ox] Respiratory 16 16 Rate Blood Pressure 144/81 [R arm] O2 Sat by Pulse 97 Oximetry Progress - Progress Progress: 09/12/20 19:39 The patient is a 24-year-old male presenting with complications related to streptococcal pharyngitis. The patient was given a dose of Rocephin being that he was not able to hold down the azithromycin this morning. He can resume the azithromycin tomorrow. For his gastritis and nausea and vomiting, he is going to be written for Carafate and famotidine. He will also be written for Zofran for as needed use to control any further nausea or vomiting. He needs to pick pulling machine tender some liquid Maalox or Mylanta to take on an as-needed basis to help control his stomach. He can also pick pulling machine tender some [id number] Chloraseptic spray to help reduce pain from the sore throat itself. He can take additional Motrin or naproxen twice daily for the next day or 2 to reduce inflammation but he should take this with some Maalox. The patient received IV fluids and antiemetics here as well. He needs to follow-up with his primary care doctor next week. ER warnings are given. [email or web address] [id number] Departure - Departure Clinical Impression: Strep throat Acute gastritis Qualifiers: Gastritis type: unspecified gastritis Gastritis bleeding: without bleeding Qualified Code(s): K29.00 - Acute gastritis without bleeding Disposition: Discharge to Home or Self Care Departure Forms: ED Discharge - Pt. Copy, Patient Portal Self Enrollment Instructions: Gastritis (DC) Diet: bland diet Activity: increase activity as tolerated Referrals: LADI ROMO [Primary Care Provider] - 1-2 Weeks Prescriptions: Ondansetron Odt [Zofran ODT] 4 mg PO Q8HR PRN #5 tab PRN Reason: Nausea--Moderate Sucralfate Tab [Carafate Tab] 1 gm PO QID #60 tab Famotidine 20 mg PO DAILY #30 tab Home Medications: Ambulatory Orders Omeprazole 20 mg PO QAM #30 cap 04/08/19 Ondansetron HCl [Zofran] 4 mg PO Q6HRS PRN #12 tab 04/08/19 Promethazine Tab [Phenergan Tablet] 25 mg PO .Q4H PRN #12 tab 04/08/19 Azithromycin [Zithromax Z-Сергей] 250 mg PO DAILY #6 tab 09/12/20 Famotidine 20 mg PO DAILY #30 tab 09/12/20 Ondansetron Odt [Zofran ODT] 4 mg PO Q8HR PRN #5 tab 09/12/20 Sucralfate Tab [Carafate Tab] 1 gm PO QID #60 tab 09/12/20 Additional Instructions: The patient is a 24-year-old male presenting with complications related to streptococcal pharyngitis. The patient was given a dose of Rocephin being that he was not able to hold down the azithromycin this morning. He can resume the azithromycin tomorrow. For his gastritis and nausea and vomiting, he is going to be written for Carafate and famotidine. He will also be written for Zofran for as needed use to control any further nausea or vomiting. He needs to pick pulling machine tender some liquid Maalox or Mylanta to take on an as-needed basis to help control his stomach. He can also pick pulling machine tender some [id number] Chloraseptic spray to help reduce pain from the sore throat itself. He can take additional Motrin or naproxen twice daily for the next day or 2 to reduce inflammation but he should take this with some Maalox. The patient received IV fluids and antiemetics here as well. He needs to follow-up with his primary care doctor next week. ER warnings are given.
[2020-09-12 19:49] VITALS: O2SAT 98
[2020-09-12 19:50] VITALS: BP 113/73
== END 2020-09-12 19:49 | disposition home or self-care (01) ==
LOC: ER 18:27
DX: J02.0 Streptococcal pharyngitis (principal); K29.00 Acute gastritis without bleeding; F32.9 Major depressive disorder, single episode, unspecified; Z87.891 Personal history of nicotine dependence; Z79.899 Other long term (current) drug therapy; Z88.0 Allergy status to penicillin
CPT/HCPCS: A4216; J0696; J1885; J2550; J7030